=== PATIENT | female | born 1990 | race Caucasian/White ===

== ENCOUNTER 2021-09-04 17:24 | Emergency (ER) | payer OTHER ==
[~2021-09-04 17:24] MED LIST: REGLAN10 MG PO
[2021-09-04] MEDS ORDERED: PREDNISONE 20 M20 MG PO (22:01)
[2021-09-04] MEDS ORDERED: PROAIR HFA8.5 GM INH (22:01)
== END 2021-09-04 22:15 | disposition home or self-care (01) ==
LOC: ER1 17:24
DX: J06.9 Acute upper respiratory infection, unspecified (principal); J98.01 Acute bronchospasm; J40 Bronchitis, not specified as acute or chronic; Z20.822 Contact with and (suspected) exposure to COVID-19
CPT/HCPCS: 0240U; 71045; 87081; 87880; 94664; 99284

== ENCOUNTER 2021-09-10 15:21 | Emergency (ER) | payer OTHER, MEDICAID ==
[~2021-09-10 15:21] MED LIST changes: +PREDNISONE 20 M20 MG PO; +PROAIR HFA8.5 GM INH
[2021-09-10 16:20] LABS: CORONAVIRUS HKU1 Not Detected (Not Detectd); CORONOAVIRUS 229E Not Detected (Not Detectd)
[2021-09-10 16:21] LABS: BORDETELLA PARAPERTUSSIS Not Detected (Not Detectd); BORDETELLA PERTUSSIS Not Detected (Not Detectd); CHLAMYDIA PNEUMONIAE Not Detected (Not Detectd); CORONAVIRUS NL63 Not Detected (Not Detectd); CORONAVIRUS OC43 Not Detected (Not Detectd); HUMAN METAPNEUMOVIRUS Not Detected (Not Detectd); HUMAN RHINOVIRUS/ENTEROVIRUS Not Detected (Not Detectd); INFLUENZA A Not Detected (Not Detectd); INFLUENZA B Not Detected (Not Detectd); MYCOPLASMA PNEUMONIAE Not Detected (Not Detectd); PARAINFLUENZA VIRUS 1 Not Detected (Not Detectd); PARAINFLUENZA VIRUS 2 Not Detected (Not Detectd); PARAINFLUENZA VIRUS 3 Not Detected (Not Detectd); PARAINFLUENZA VIRUS 4 Not Detected (Not Detectd); RESPIRATORY SYNCYTIAL VIRUS Not Detected (Not Detectd)
[2021-09-10 16:24] LABS: HEMOGLOBIN 14.5 gm/dl (12.3-15.3); RED BLOOD COUNT 4.83 M/UL (4.00-5.10); WHITE BLOOD COUNT 11.9 K/UL (4.5-11.0)
[2021-09-10 16:37] LABS: BUN/CREATININE RATIO 19 (0-10)
[2021-09-10 17:12] LABS: SARS-CoV-2 NOT DETECTED (Not Detectd)
== END 2021-09-10 18:30 | disposition home or self-care (01) ==
LOC: ER1 15:21
PROVIDERS: Emergency Medicine
DX: R06.02 Shortness of breath (principal); F17.290 Nicotine dependence, other tobacco product, uncomplicated; Z20.822 Contact with and (suspected) exposure to COVID-19
CPT/HCPCS: 80053; 82550; 82553; 83874; 83880; 84484; 85025; 87633; 93005; 99285; Q9967

== ENCOUNTER 2021-11-20 22:39 | Emergency (ER) | payer OTHER ==
[2021-11-20 23:20] LABS: HEMOGLOBIN 13.3 gm/dl (12.3-15.3); RED BLOOD COUNT 4.51 M/UL (4.00-5.10); WHITE BLOOD COUNT 5.5 K/UL (4.5-11.0)
[2021-11-20 23:40] LABS: BUN/CREATININE RATIO 10 (0-10)
[2021-11-21] MEDS ORDERED: ASPIRIN CHEWABL81 MG PO (02:32)
== END 2021-11-21 02:38 | disposition home or self-care (01) ==
LOC: ER1 22:39
PROVIDERS: Physician Assistant
DX: U07.1 COVID-19 (principal); F17.200 Nicotine dependence, unspecified, uncomplicated
CPT/HCPCS: 0240U; 71045; 80053; 81001; 83605; 84703; 85025; 87040; 87081; 87086; 87880; 99283; J2405

== ENCOUNTER → 2022-05-15 | Outpatient (CLI) | payer OTHER ==
[~2022-05-15] MED LIST changes: +ASPIRIN CHEWABL81 MG PO
== END ==
LOC: HEART 5 05-02 15:30
DX: R06.02 Shortness of breath (principal); I47.1 Supraventricular tachycardia
CPT/HCPCS: 93306